=== PATIENT | male | born 1950 | race Caucasian/White ===

== ENCOUNTER → 2017-02-13 | Outpatient (CLI) | payer BC, MEDICARE ==
--- NOTE | ~2017-02-13 | US5 ---
[facility] A Service of [facility] RADIOLOGY TEXT RESULTS PATIENT: SOLITARIO PATEL LOCATION: [facility] : 48 UNIT #: [id number] AGE: [address]: SULLY DIAS SEX: M ORDER DR: [id number] [facility] [address], [place] [address] [id number] MR#: [id number] Acc #: [id number] NAME: SOLITARIO PATEL : 1950 SEX: M STUDY DATE/TIME: 02/13/2017 8:58 UNIT: [facility]US ROOM: STUDY DESCRIPTION: US Abdominal Complete Attending Physician: Sully Dias Aprn Referring Physician: Sully Dias Aprn Ordering Physician: Physician Non-Staff Primary Care Physician: Lebron Ding M.D. MEDICAL IMAGING REPORT This report is preliminary unless electronic signature is present EXAM Abdominal ultrasound INDICATIONS Hepatitis C. Observation for cirrhosis and hepatocellular carcinoma. PROCEDURE Goyla scale and Doppler imaging of the abdomen COMPARISON 07/28/2016 FINDINGS Visualized portions abdominal aorta and vena cava unremarkable. Majority of the pancreas is obscured by bowel gas and not well seen. Liver has slightly increased in coarsened echotexture. The liver measures 16.9 cm. There are small stones in the gallbladder. No wall thickening or pericholecystic fluid. Common duct measures 4 mm. Left kidney measures 11 cm. No hydronephrosis. Spleen measures 15.3 cm. IMPRESSION 1. Slightly increase in coarsened echotexture could represent changes of chronic liver disease. No visible liver mass on submitted images. 2. Splenomegaly. 3. Uncomplicated cholelithiasis Dictated by... Jaylen Kebede M.D. THIS IS AN ELECTRONICALLY VERIFIED REPORT Jaylen Kebede M.D. at 02/14/2017 8:27 AM Frantz [facility] A Service of [facility] RADIOLOGY TEXT RESULTS PATIENT: SOLITARIO PATEL LOCATION: [facility] : 48 UNIT #: [id number] AGE: [address]: SULLY DIAS SEX: M ORDER DR: TD: 02/13/2017 16:09 JOB #: [id number] MEDICAL IMAGING REPORT Page 1 of 1 COPY
== END | disposition home or self-care (01) ==
LOC: CGUS 08:37
DX: B18.2 Chronic viral hepatitis C (principal); K80.20 Calculus of gallbladder without cholecystitis without obstruction; R16.1 Splenomegaly, not elsewhere classified
CPT/HCPCS: 76700